=== PATIENT | female | born 1935 | race Caucasian/White ===

== ENCOUNTER 2022-06-05 09:21 | Outpatient (CLI) | payer MEDICARE, SELFPAY ==
[2022-06-05 10:04] LABS: Anion Gap 10 mmol/L (8-16); Blood Urea Nitrogen 14 mg/dL (7-17); Carbon Dioxide 26 mmol/L (22-30); Chloride 103 mmol/L (98-107); Estimated Glomerular Filt Rate > 60; Glucose 118 mg/dL (65-110); Potassium 4.4 mmol/L (3.4-5.0); Sodium 139 mmol/L (137-145)
== END 2022-06-05 09:22 | disposition home or self-care (01) ==
PROVIDERS: Anesthesiology; PCP Family Medicine; Visit Provider Urology
DX: Z01.812 Encounter for preprocedural laboratory examination (principal); E11.9 Type 2 diabetes mellitus without complications
CPT/HCPCS: 36415; 80048

== ENCOUNTER 2022-06-07 02:13 | Day surgery (SDC) | payer MEDICARE, SELFPAY ==
--- NOTE | 2022-06-03 12:39 | PM.IMHP ---
H&P: HPI History of Present Illness Date/Time: 06/03/22 12:39 Chief Complaint: urge incontinence Narrative: she has refractory urge incontinence. She has InterStim device. It was placed in 2017. Her battery is nearing end of service. Review of Systems Review of Systems: All systems reviewed & are unremarkable except as noted in HPI and below Meds Home Medications and Allergies Allergies Allergy/AdvReac Type Severity Reaction Status Date / Time No Known Allergies Allergy Unverified 06/13/17 06:15 Exam Narrative: No acute distress normal breathing alert orient x3 Assessment and Plan Assessment and plan (1) Urge incontinence: Code(s): N39.41 - Urge incontinence Status: Acute Assessment and Plan: exchange of neurostimulator battery
--- NOTE | 2022-06-03 15:27 | PC.NURSE ---
Report to the Outpatient Waiting Room, entrance under the green pavilion located off [facility], at time __0915____ on date _06/07/22 . OR Time: _1115 . - You and your visitor will be asked a series of questions to screen for COVID 19 for your protection. - Only one visitor is allowed at this time. - The patient visitor is requested to leave or wait in car when not with patient. - A mask is required within the hospital. Patients may have clear liquids (water, carbonated beverages, clear teas, apple juice) until 3 hours prior to surgery with a maximum of 20 ounces. - No food from midnight until time of surgery - Infants may have breast milk until 4 hours before surgery, infant formula 6 hours prior to surgery. - Children will be allowed to drink immediately following surgery. If applicable, please bring a bottle or sippy cup to assist with drinking. Juice, water, soda, and popsicles are readily available. For infants on formula, please bring formula the day of surgery. Pacifiers are allowed. Take the following medications with a SIP of water the morning of surgery: __LEVOTHYROXINE Medications to discontinue per physician ___PT STATES PLAVIX 4 DAYS PRE OP PER DR ENAMORADO . ALL VITAMINS AND SUPPLEMENTS 3 DAYS PRE OP Date to take last dose_PLAVIX 06/02/22 ALL VIT/SUPP 06/03/22 Please no make-up, nail malian, hairspray, perfume, deodorant, or body powder the day of surgery. No jewelry (including any body piercings) or valuables the day of surgery, leave them at home. Please take a shower or bath the night before, or the morning of, surgery with an antibacterial soap. Wear comfortable, loose fitting clothing. Children are encouraged to wear pajamas. - Jewelry must be removed prior to entering the operating room. Rings and piercings that are not removed may be cut off. - The hospital will not accept responsibility for valuables. - Please leave all valuables, including medications, at home the day of surgery. If you are going home after surgery, a licensed dedicated truck driver must drive you home. - NO public transportation without another adult. - We recommend that an adult stay with you for 24 hours following discharge. - We also recommend that you do not drive, make important decision, drink alcoholic beverages, or take any drugs that were not prescribed by your health care provider for at least 24 hours after your discharge time. For Pediatric surgeries, we recommend two adults accompany the child home (only one inside the building at this time). Follow any additional instructions given to you from your surgeon. If you or anyone in your household have experienced Covid symptoms in the past week, please notify your surgeon or the nurse liaison at the phone number below for possible testing. Telephone instructions given to __PATIENT and asked if any additional questions and then verbalized understanding. Patient advised to call surgeon office or pre surgery nurse liaison [phone] if any additional questions.
[2022-06-03 15:38] VITALS: BMI 36.3
--- NOTE | 2022-06-07 07:17 | WPDHPUPDATE1 ---
History and Physical Update Update Date/Time: 06/07/22 07:17 History and Physical has been reviewed, including an updated exam of the patient. There are NO changes in the patient's condition. Risks, benefits, and alternatives have been discussed and questions answered. Patient agrees to proceed with procedure.
[2022-06-07 10:01] VITALS: BP 122/57; PULSE 83; RESP 16; TEMP 36.4; O2SAT 100
--- NOTE | 2022-06-07 10:41 | P.PNAN_ITS ---
Anes - Initial Pre Proc Eval Procedure: Operation Date: 06/07/22 11:15 Proposed Procedures p Interstim Battery Exchange - Obinna Spears MD Date/Time: 06/07/22 10:41 Surgeon: Obinna Spears MD Pre Op Diagnosis: urge incont Patient Data Age: 86 Gender: F Height: 1.52 m Weight: 85 kg Last Vital Signs Temp 36.4 C L 06/07/22 10:01 Pulse 83 06/07/22 10:01 Resp 16 06/07/22 10:01 BP 122/57 L 06/07/22 10:01 Pulse Ox 100 06/07/22 10:01 O2 Del Method Room Air 06/07/22 10:01 Allergies Allergy/AdvReac Type Severity Reaction Status Date / Time No Known Allergies Allergy Unverified 06/07/22 09:28 Home Medications Medication Instructions Recorded Confirmed Type clopidogrel 75 mg tablet 75 mg PO DAILY 06/03/22 06/07/22 History gabapentin 300 mg capsule 300 mg PO QPM 06/03/22 06/07/22 History levothyroxine 50 mcg tablet 50 mcg PO DAILY 06/03/22 06/07/22 History lisinopril 10 mg tablet 10 mg PO DAILY 06/03/22 06/07/22 History magnesium 200 mg tablet 200 mg PO DAILY 06/03/22 06/07/22 History metformin 500 mg tablet 500 mg PO DAILY 06/03/22 06/07/22 History oxybutynin chloride 5 mg 5 mg PO DAILY 06/03/22 06/07/22 History tablet,extended release 24 hr rosuvastatin 10 mg tablet 10 mg PO DAILY 06/03/22 06/07/22 History tramadol 50 mg tablet 50 mg PO BID 06/03/22 06/07/22 History turmeric 400 mg capsule 400 mg PO DAILY 06/03/22 06/07/22 History Patient hx anesthesia problems: none Family hx anesthesia problems: none Results Review: All pre-operative results and documents have been reviewed as part of the pre- operative evaluation. [facility] Past Medical History Medical History Diabetes HTN (hypertension) Hyperlipidemia Neuropathy Surgical History Surgical History (Updated 06/07/22 @ 10:45 by Cipriano Sr MD) H/O cervical spine surgery History of bladder surgery Social History Social History Smoking packs per day: 1 Smoking cigarettes per day: 20.0 Years smoked: 40 Smoking pack-years: 40.00 Smoking status: Former smoker Tobacco type: cigarettes Smoking end date: 11/10/90 Alcohol intake: current Drinks per week: 7 Alcohol use details: [employer] Living arrangements: with family Spiritual care concerns: No Anes - Eval Final PreProcedure Day of Procedure 06/07/22 10:41 Patient weight: obese Heart: regular rate and rhythm Lungs: clear to auscultation Airway: Mallampati scale class II and special considerations poor extension Neurological: alert and oriented Last oral intake: >/= 8 hours ASA classification: III Emergent: no Anesthetic plan: proceed Anesthesia type and monitoring: general GIVS and standard monitoring Results Review: All pre-operative results and documents have been reviewed as part of the pre- operative evaluation. Informed Consent: The patient's anesthetic plan and its attendant risks and benefits were discussed with the patient/family/POA. Questions were solicited and answers provided to the satisfaction of the patient/family/POA.
[2022-06-07] MEDS: LACTATED RINGERS 1,000 ML 30 ML IV CONT (10:48)
[2022-06-07] MEDS: ceFAZolin 2 GM/D5W 50 ML 2 GM/50 ML BAG IVPB (11:22)
[2022-06-07] MEDS: BUPIVACAINE/EPINEPHRINE 0.25% 10 ML VIAL 20 ML INFILTRATE (11:41)
--- NOTE | 2022-06-07 11:52 | W.PM.PROC2 ---
Procedure Note - Detailed Date of Procedure 06/07/22 Pre-op Diagnosis Urge urinary incontinence Post-op Diagnosis Same Procedure Performed Exchange of neurostimulator battery Complex neurostimulator programming and impedance check Surgeon Obinna Spears MD Anesthesia MAC and Local Indications She has an InterStim device in place. She is in need of battery change Findings Uncomplicated procedure Description of Procedure She has correctly identified. Informed consent obtained. From the operating room. She was given MAC anesthesia. She was placed in a prone position. Lower back and buttock were prepped and draped sterile fashion. Time-out performed. I anesthetized the skin over the old pulse generator. I incised the skin. I explanted the pulse generator. I programmed the new generator. Appropriate connections were made. It was placed in the pocket. Impedances were checked and found to be normal. I assured hemostasis. I irrigated out all tissues. I closed the subcutaneous tissues with 2-0 Vicryl. Skin with 4-0 Vicryl. Glue was applied. She was awakened transferred to PACU in stable condition Implants Neurostimulator battery Estimated Blood Loss 1 Pathology None sent Condition Stable Disposition PACU
[2022-06-07 11:53] VITALS: BP 134/90; PULSE 81; RESP 12; O2SAT 94
[2022-06-07 12:20] VITALS: BP 114/63; PULSE 70; RESP 16; O2SAT 95
[2022-06-07 12:50] VITALS: BP 135/76; PULSE 76; RESP 16
--- NOTE | 2022-06-07 14:16 | SUR.PHASEII ---
INTERSTIM REP HERE TO SPEAK TO PATIENT.
== END 2022-06-07 13:00 | disposition home or self-care (01) ==
PROVIDERS: PCP Family Medicine; Visit Provider Urology
PROC: (CPT 64590; principal; 2022-06-07 11:15)
DX: Z45.42 Encounter for adjustment and management of neurostimulator (principal); N39.41 Urge incontinence; E11.9 Type 2 diabetes mellitus without complications; I10 Essential (primary) hypertension; E78.5 Hyperlipidemia, unspecified; G62.9 Polyneuropathy, unspecified; Z79.84 Long term (current) use of oral hypoglycemic drugs; E03.9 Hypothyroidism, unspecified; Z87.891 Personal history of nicotine dependence; E66.9 Obesity, unspecified; Z68.36 Body mass index [BMI] 36.0-36.9, adult
CPT/HCPCS: 64590; C1767; C1787; J0690; J2704; J3010; J7120